=== PATIENT | male | born 1975 | race Caucasian/White ===

== ENCOUNTER 2022-03-29 18:12 | Emergency (ER) | payer MEDICARE ==
--- OUTSIDE RECORDS SUMMARY | 2022-03-29 18:16 | XMS REPORT | Continuity of Care Document ---
:1975 Author Organization [facility] t Address [address] [place] [address] Care Team Providers Name Role Phone Jeanne BLUM Primary Care Physician Unavailable Jeanne Myers Attending Clinician Unavailable Sameer Attending Clinician Unavailable PEBBLES Attending Clinician Unavailable Pebbles LINE REPAIRER Attending Clinician Nurse, [facility] Attending Clinician Unavailable Unknown Attending Clinician Unavailable Rubén REINA Attending Clinician UNKNOWN Attending Clinician Unavailable Doctor Unassigned, Name Attending Clinician Unavailable Dixie ADKINS Attending Clinician RUBÉN Attending Clinician Unavailable Roe ADKINS Attending Clinician Isabel CARLSON Attending Clinician ISABEL Attending Clinician Unavailable Bill Price MD Attending Clinician Bill PRICE Attending Clinician Unavailable Morena Matthews Attending Clinician Wendy Graham Attending Clinician Payers Payer Name Policy Type Policy Number Effective Date Expiration Date S joy JAIMES [facility] HMO [id number] 2020 00:00:00 FORMERLY [facility] [id number] (MEDICARE 00:00:00 REPLACEMENT HMO) [employer] [facility] [id number] 2021 MEDICARE ADVANTAGE 00:00:00 PLAN Problems Condition Condition Condition Status Onset Resolution Last Treating Co mments Source Name Details Category Date Date Treatment Clinician Date Drug Drug Disease Active Overview: Univer s dependence dependence 3-07 Formattin ity of , episodic , episodic 00:00: g of this [place] use use 00 note Medical might be Branch different from the original. 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 H/o Polysubst ance abuseICD1 0 Diagnosis Term Certified Dental Assistant Utility Allergies, Adverse Reactions, Alerts Allergy Allergy Status Severity Reaction(s) Onset Inactive Treating Comm ents Source Name Type Date Date Clinician PENICILL Drug Active Univers INS Class 2-25 ity of 00:00: [place] 00 Medical Branch Penicill Propensi Active Univer s ins ty to 2-25 ity of adverse 00:00: [place] reaction 00 Medical s Branch Penicill Propensi Active Univer s ins ty to 2-25 ity of adverse 00:00: [place] reaction 00 Medical s Branch Penicill Adverse Active Rash Common amine Reaction [facility] Social History Social Habit Start Date Stop Date Quantity Comments Source History SDOH University o f Alcohol Frequency [facility] edical Branch History [facility] University o f Alcohol Std [place] Medical Drinks Branch History SDVT University o f Alcohol Binge [place] Medic al Branch Exposure to 2022-01-15 2022-01-25 Not sure [place] of SARS-CoV-2 00:00:00 12:49:00 [facility] (event) Branch Alcohol intake 2022-01-25 2022-01-25 Ex-drinker University of 00:00:00 00:00:00 (finding) [facility] Alcohol Comment 2022-01-25 2022-01-25 c/o sober x 7 Univer sity of 00:00:00 00:00:00 years [facility] Tobacco use and 2016-04-06 2016-04-06 Never used Universit y of exposure 00:00:00 00:00:00 [facility] Sex [birth year] Universit y of 00:00:00 00:00:00 [facility] Smoking Status Start Date Stop Date Source Never smoker [facility] Medications Ordered Filled Start Stop Current Ordering Indication Dosage Frequency Signature Comments Components Source Medication Medication Date Date Medication? Clinician (SIG) Name Name lidocaine 2021- Yes 5mL 5 mL, Univer s 1% 01-2524 Infiltrati ity of (XYLOCAINE) 21:15: 09:14 on, ONCE, [place] 10 mg/mL (1 00 :00 1 dose, On Me dical %) Mon Branch injection 5 01/25/22 at mL 1615, HECTOR mupirocin 2 2020-09 Yes [id number] Apply to Univers % ointment 0-04 [id number] area(s) 3 it y of 00:00: (three) [place] 00 times Medical daily. Branch mupirocin 2 2020-09 Yes [id number] Apply to Univers % ointment 0-04 [id number] area(s) 3 it y of 00:00: (three) [place] 00 times Medical daily. Branch mupirocin 2 2020-09 Yes [id number] Apply to Univers % ointment 0-04 [id number] area(s) 3 it y of 00:00: (three) [place] 00 times Medical daily. Branch mupirocin 2 2020-09 Yes [id number] Apply to Univers % ointment 0-04 [id number] area(s) 3 it y of 00:00: (three) [place] 00 times Medical daily. Branch doxycycline 2020-09- No [id number] 100mg Take 1 Univers hyclate 100 0-04 10-10 [id number] tablet by ity of mg tablet 00:00: 04:59 mouth 2 [place] 00 :[place] (two) Medical times Branch daily for 5 days. mupirocin 2 Yes [id number] Apply to Univers % cream 9-19 [id number] area(s) 3 ity o f 00:00: (three) [place] 00 times Medical daily. Branch mupirocin 2 2020- No [id number] Apply to Univers % cream 9-19 10-04 [id number] area(s) 3 ity of 00:00: 00:00 (three) [place] 00 :00 times Medical daily. Branch sulfamethox 2020- No [id number] 1{tbl} Take 1 Univers azole-trime 05-24 [id number] tablet by ity of thoprim 00:00: 04:59 mouth 2 [place] (BACTRIM 00 :00 (two) Medical DS) 800-160 times Branch mg per daily for tablet 10 days. tetracaine 2019-09- No 1[drp] 1 Drop, U nivers (PONTOCAINE 06-30 Both Eyes, i ty of ) 0.5 % 22:30: 22:30 ONCE, 1 [place] ophthalmic 00 :00 dose, Mon Medi michael drops 1 06/30/20 Branch Drop at 1730, Routine tetanus-dip 2019-09 No .5mL 0.5 mL, Un jorge htheria 006-30 Intramuscu ity o f toxoids 22:30: 21:30 lar, ONCE, [place] as (TENIVAC) 00 :00 1 dose, Medical 5-2 Lf Mon Branch unit/0.5 mL 06/30/20 injection at 1730, 0.5 mL Routine ibuprofen 2019-09 Yes [id number] 600mg Take 1 Univers 600 mg 0-26 tablet by ity of tablet 00:00: mouth 00 every 6 Medical (six) Branch hours as needed for Pain (scale 4-6). ibuprofen 2019-09 Yes [id number] 600mg Take 1 Univers 600 mg 0-26 tablet by ity of tablet 00:00: mouth [place] 00 every 6 Medical (six) Branch hours as needed for Pain (scale 4-6). ibuprofen 2019-09- No [id number] 600mg Take 1 Univers 600 mg 0-26 05-24 tablet by ity of tablet 00:00: 00:00 mouth [place] 00 :00 every 6 Medical (six) Branch hours as needed for Pain (scale 4-6). erythromyci 2019-09- No [id number] .5[in_u Place 0.5 Univers n 5 mg/gram 0- 11-03 s] Inches in it y of (0.5 %) 00:00: 05:59 left eye 4 [place] ophthalmic 00 :00 (four) Medical ointment times Branch daily for 7 days. Continue until you follow up with eye doctor. acetaminoph 2019-09 2020- No [id number] 1{tbl} Take 1 U nivers en-codeine 0-26 11-03 tablet by ity of 300-30 mg 00:00: 05:59 mouth [place] tablet 00 :00 every 6 Medical (six) Branch hours as needed for Pain (scale 7-10) for up to 7 days. Indication s: acute pain Venlafaxine Venlafaxine 2019-0 Yes Mer 1 capsule Common HCl ER HCl ER 8-13 [place] for Spirit 00:00: anxiety - [facility] 00 [facility] BusPIRone BusPIRone 2019-0 Yes Mer 1 tablet Common HCl HCl 8-13 [place] as needed Spiri t 00:00: for - [facility]I 00 [facility] Gabapentin Gabapentin 2019-0 Yes Mer 1 capsule Common 8-13 [place] as needed Spiri t 00:00: for pain - [facility]I 00 [facility] Viagra Viagra 2019-0 2020- No Mer as Common 8- 09-12 [place] directed Spiri t 00:00: 00:00 - [facility]I 00 :00 [facility] methylPREDN 2020-0 Yes [id number] Take by Univers ISolone 7-07 mouth ity of (MEDROL, 00:00: SEE-INSTRU [place] TYSHAWN,) 4 mg 00 CTIONS. Medica l tablets follow Branch package directions benzonatate 2019-0 Yes [id number] 100mg Take 1 Univers 100 mg 7-07 capsule by ity of capsule 00:00: mouth 3 00 (three) Medical times Branch daily as needed for Cough. ondansetron 2020-0 Yes [id number] 4mg Take 1 Univers (ZOFRAN 7-07 tablet by ity of ODT) 4 mg 00:00: mouth [place] disintegrat 00 every 8 Medic al ing tablet (eight) Branch hours as needed for Nausea and Vomiting (N/V). cyclobenzap 2020-0 Yes [id number] 10mg Take 1 Univers rine 10 mg 7-07 tablet by ity of tablet 00:00: mouth 3 [place] 00 (three) Medical times Branch daily. methylPREDN 2020-0 Yes [id number] Take by Univers ISolone 7-07 mouth ity of (MEDROL, 00:00: SEE-INSTRU [place] TYSHAWN,) 4 mg 00 CTIONS. Medica l tablets follow Branch package directions benzonatate 2020-0 Yes [id number] 100mg Take 1 Univers 100 mg 7-07 capsule by ity of capsule 00:00: mouth 3 [place] 00 (three) Medical times Branch daily as needed for Cough. ondansetron 2020-0 Yes [id number] 4mg Take 1 Univers (ZOFRAN 7-07 tablet by ity of ODT) 4 mg 00:00: mouth [place] disintegrat 00 every 8 Medic al ing tablet (eight) Branch hours as needed for Nausea and Vomiting (N/V). cyclobenzap 2020-0 Yes [id number] 10mg Take 1 Univers rine 10 mg 7-07 tablet by ity of tablet 00:00: mouth 3 (three) Medical times Branch daily. methylPREDN 2020-0 Yes [id number] Take by Univers ISolone 7-07 mouth ity of (MEDROL, 00:00: SEE-INSTRU [place] TYSHAWN,) 4 mg 00 CTIONS. Medica l tablets follow Branch package directions benzonatate 2020-0 Yes [id number] 100mg Take 1 Univers 100 mg 7-07 capsule by ity of capsule 00:00: mouth 3 00 (three) Medical times Branch daily as needed for Cough. ondansetron 2020-0 Yes [id number] 4mg Take 1 Univers (ZOFRAN 7-07 tablet by ity of ODT) 4 mg 00:00: mouth [place] disintegrat 00 every 8 Medic al ing tablet (eight) Branch hours as needed for Nausea and Vomiting (N/V). cyclobenzap 2020-0 Yes [id number] 10mg Take 1 Univers rine 10 mg 7-07 tablet by ity of tablet 00:00: mouth 3 (three) Medical times Branch daily. methylPREDN 2020-0 2021- No [id number] Take by Univers ISolone 7-03 13-19 mouth ity of (MEDROL, 00:00: 00:00 [place]-INSTRU [place] TYSHAWN,) 4 mg 00 :00 CTIONS. Medica l tablets follow Branch package directions benzonatate 2020-0 2021- No [id number] 100mg Take 1 Univers 100 mg 7-07 -19 capsule by ity of capsule 00:00: 00:00 mouth 3 [place] 00 :00 (three) Medical times Branch daily as needed for Cough. ondansetron 2020- No [id number] 4mg Take 1 Univers (ZOFRAN 03-11 tablet by ity of ODT) 4 mg 00:00: 00:00 mouth [place] disintegrat 00 :00 every 8 Medic al ing tablet (eight) Branch hours as needed for Nausea and Vomiting (N/V). cyclobenzap 2020- No [id number] 10mg Take 1 Univers rine 10 mg 03-11 tablet by ity of tablet 00:00: 00:00 mouth 3 [place] 00 :00 (three) Medical times Branch daily. Selenium 2015-09 Yes Apply to Univ ers Sulfide 1-08 area(s) ity of (SELSEB) 00:00: daily. [place] 2.25 % 00 Medical shampoo Branch minocycline 2015-09 Yes 100mg Take 1 Uni vers (DYNACIN) 08 tablet by ity o f 100 mg 00:00: mouth 2 [place] tablet 00 (two) Medical times Branch daily. hydrocortis 2015-09 Yes Apply to U nivers one 1 % 1-08 affected ity of cream 00:00: area(s) 2 [place] 00 (two) Medical times Branch daily. Mix with equal parts clotrimazo le cream. Apply to face. clotrimazol 2015-09 Yes Apply to U nivers e 1-08 area(s) at ity of (LOTRIMIN) 00:00: bedtime. [place] 1 % topical 00 Medical cream Branch benzoyl 2015-09 Yes 1{bottl Apply 1 Univ ers peroxide 1-08 e} Bottle to ity of (RIAX) 5.5 00:00: area(s) 2 [place] % Foam 00 (two) Medical times Branch daily. triamcinolo 2015-09 Yes Apply to U nivers ne 1-08 area(s) 2 ity of acetonide 00:00: (two) [place] (TRIDERM) 00 times Medical 0.1 % cream daily. Branch clotrimazol 2015-09 Yes Apply to U nivers e 1-08 area(s) at ity of (LOTRIMIN) 00:00: bedtime. [place] 1 % topical 00 Medical cream Branch benzoyl 2015-09 Yes 1{bottl Apply 1 Univ ers peroxide 1-08 e} Bottle to ity of (RIAX) 5.5 00:00: area(s) 2 [place] % Foam 00 (two) Medical times Branch daily. triamcinolo 2015-09 Yes Apply to U nivers ne 1-08 area(s) 2 ity of acetonide 00:00: (two) [place] (TRIDER) 00 times Medical 0.1 % cream daily. Branch clotrimazol 2015-09 Yes Apply to U nivers e 1-08 area(s) at ity of (LOTRIMIN) 00:00: bedtime. [place] 1 % topical 00 Medical cream Branch benzoyl 2015-09 Yes 1{bottl Apply 1 Univ ers peroxide 1-08 e} Bottle to ity of (RIAX) 5.5 00:00: area(s) 2 [place] % Foam 00 (two) Medical times Branch daily. triamcinolo 2015-09 Yes Apply to U nivers ne 1-08 area(s) 2 ity of acetonide 00:00: (two) [place] (TRIDER) 00 times Medical 0.1 % cream daily. Branch clotrimazol 2015-09 Yes Apply to U nivers e 1-08 area(s) at ity of (LOTRIMIN) 00:00: bedtime. [place] 1 % topical 00 Medical cream Branch benzoyl 2015-09 Yes 1{bottl Apply 1 Univ ers peroxide 1-08 e} Bottle to ity of (RIAX) 5.5 00:00: area(s) 2 [place] % Foam 00 (two) Medical times Branch daily. triamcinolo 2015-09 Yes Apply to U nivers ne 1-08 area(s) 2 ity of acetonide 00:00: (two) [place] (TRIDER) 00 times Medical 0.1 % cream daily. Branch clotrimazol 2015-09 Yes Apply to U nivers e 1-08 area(s) at ity of (LOTRIMIN) 00:00: bedtime. [place] 1 % topical 00 Medical cream Branch benzoyl 2015-09 Yes 1{bottl Apply 1 Univ ers peroxide 1-08 e} Bottle to ity of (RIAX) 5.5 00:00: area(s) 2 [place] % Foam 00 (two) Medical times Branch daily. clotrimazol 2015-09 Yes Apply to U nivers e 1-08 area(s) at ity of (LOTRIMIN) 00:00: bedtime. [place] 1 % topical 00 Medical cream Branch benzoyl 2015-09 Yes 1{bottl Apply 1 Univ ers peroxide 1-08 e} Bottle to ity of (RIAX) 5.5 00:00: area(s) 2 [place] % Foam 00 (two) Medical times Branch daily. triamcinolo 2015-09 Yes Apply to U nivers ne 1-08 area(s) 2 ity of acetonide 00:00: (two) [place] (TRIDERM) 00 times Medical 0.1 % cream daily. Branch triamcinolo 2015-09 Yes Apply to U nivers ne 1-08 area(s) 2 ity of acetonide 00:00: (two) [place] (TRIDERM) 00 times Medical 0.1 % cream daily. Branch Selenium 2015-09 Yes Apply to Univ ers Sulfide 1-08 area(s) ity of (SELSEB) 00:00: daily. [place] 2.25 % 00 Medical shampoo Branch minocycline 2015-09 Yes 100mg Take 1 Uni vers (DYNACIN) 1-08 tablet by ity o f 100 mg 00:00: mouth 2 [place] tablet 00 (two) Medical times Branch daily. hydrocortis 2015-09 Yes Apply to U nivers one 1 % 1-08 affected ity of cream 00:00: area(s) 2 [place] 00 (two) Medical times Branch daily. Mix with equal parts clotrimazo le cream. Apply to face. clotrimazol 2015-09 Yes Apply to U nivers e 1-08 area(s) at ity of (LOTRIMIN) 00:00: bedtime. [place] 1 % topical 00 Medical cream Branch benzoyl 2015-09 Yes 1{bottl Apply 1 Univ ers peroxide 1-08 e} Bottle to ity of (RIAX) 5.5 00:00: area(s) 2 [place] % Foam 00 (two) Medical times Branch daily. triamcinolo 2015-09 Yes Apply to U nivers ne 1-08 area(s) 2 ity of acetonide 00:00: (two) [place] (TRIDERM) 00 times Medical 0.1 % cream daily. Branch Selenium 2015-09 Yes Apply to Univ ers Sulfide -08 area(s) ity of (SELSEB) 00:00: daily. [place] 2.25 % 00 Medical shampoo Branch minocycline 2015-09 Yes 100mg Take 1 Uni vers (DYNACIN) -08 tablet by ity o f 100 mg 00:00: mouth 2 [place] tablet 00 (two) Medical times Branch daily. hydrocortis 2015-09 Yes Apply to U nivers one 1 % 08 affected ity of cream 00:00: area(s) 2 [place] 00 (two) Medical times Branch daily. Mix with equal parts clotrimazo le cream. Apply to face. clotrimazol 2015-09 Yes Apply to U nivers e -08 area(s) at ity of (LOTRIMIN) 00:00: bedtime. [place] 1 % topical 00 Medical cream Branch benzoyl 2015-09 Yes 1{bottl Apply 1 Univ ers peroxide 1-08 e} Bottle to ity of (RIAX) 5.5 00:00: area(s) 2 [place] % Foam 00 (two) Medical times Branch daily. triamcinolo 2015-09 Yes Apply to U nivers ne 1-08 area(s) 2 ity of acetonide 00:00: (two) [place] (TRIDERM) 00 times Medical 0.1 % cream daily. Branch Selenium 2015-09- No Apply to Uni vers Sulfide 09-12 area(s) ity of (SELSEB) 00:00: 00:00 daily. [place] 2.25 % 00 :00 Medical shampoo Branch minocycline 2015-09- No 100mg Take 1 Un jorge (DYNACIN) 09-12 tablet by ity of 100 mg 00:00: 00:00 mouth 2 [place] tablet 00 :00 (two) Medical times Branch daily. hydrocortis 2015-09- No Apply to Univers one 1 % 09-12 affected ity of cream 00:00: 00:00 area(s) 2 [place] 00 :00 (two) Medical times Branch daily. Mix with equal parts clotrimazo le cream. Apply to face. DULOXETINE Yes 1 Cap Oral U nivers 20 MG ORAL 6-19 BID ity of CPDR 00:00: [place] 00 Medical Branch DULOXETINE 2008-0 Yes 1 Cap Oral U nivers 20 MG ORAL 6-19 BID ity of CPDR 00:00: [place] 00 Medical Branch DULOXETINE 2007- Yes 1 Cap Oral U nivers 20 MG ORAL 6-19 BID ity of CPDR 00:00: [place] 00 Medical Branch DULOXETINE 2007-0 2021- No 1 Cap Oral Univers 20 MG ORAL 6-19 09-19 BID ity of CPDR 00:00: 00:00 [place] 00 :00 Medical Branch QUETIAPINE 2006-0 Yes 2 Tab Oral U nivers 300 MG ORAL 3-08 QHS ity of TAB 00:00: [place] 00 Medical Branch QUETIAPINE 2006-0 Yes 2 Tab Oral U nivers 300 MG ORAL 3-08 QHS ity of TAB 00:00: [place] 00 Medical Branch QUETIAPINE 2006-0 Yes 2 Tab Oral U nivers 300 MG ORAL 3-08 QHS ity of TAB 00:00: [place] 00 Medical Branch QUETIAPINE 2006-0 1- No 2 Tab Oral Univers 300 MG ORAL 3-08 -19 QHS ity of TAB 00:00: 00:00 [place] 00 :00 Medical Branch Trazodone Trazodone Yes Mer 2 tablets Common HCl HCl [place] at bedtime Spir it as needed - [facility]I for sleep [facility] Doxycycline Doxycycline Yes Mer 1 tablet Common Hyclate Hyclate [place] Spir it - [facility] Immunizations Ordered Filled Immunization Date Status Comments Sour e Immunization Name Name Td 2020-06-30 Completed University of 00:00:00 [facility] Td 2020-06-30 Completed University of 00:00:00 [facility] Td 2020-06-30 Completed University of 00:00:00 [facility] Td 2020-06-30 Completed University of 00:00:00 [facility] Td 2020-06-30 Completed University of 00:00:00 [facility] Td 2020-06-30 Completed University of 00:00:00 [facility] Td 2020-06-30 Completed University of 00:00:00 [facility] Vital Signs Vital Name Observation Time Observation Value Comments Source Systolic blood 2022-01-25 20:50:00 168 mm[Hg] Univer sity of pressure [facility] Diastolic blood 2022-01-25 20:50:00 90 mm[Hg] Unive rsity of pressure [place] [facility] Heart rate 2022-01-25 20:50:00 81 /min Universi ty of [place] [facility] Respiratory rate 2022-01-25 20:50:00 18 /min Univ ersity of [place] [facility] Oxygen saturation in 2022-01-25 20:50:00 96 /min University of Arterial blood by [facility] Pulse oximetry Branch Body temperature 2022-01-25 18:00:00 36.44 Natalia Univ ersity of [place] [facility] Body weight 2022-01-25 18:00:00 133.811 kg Universi ty of [place] [facility] BMI 2022-01-25 18:00:00 35.91 kg/m2 [facility] ty [facility] [place] [facility] Systolic blood 2022-01-25 17:20:00 145 mm[Hg] Univer sity of pressure [place] [facility] Diastolic blood 2022-01-25 17:20:00 84 mm[Hg] Unive rsity of pressure [place] [facility] Heart rate 2022-01-25 17:15:00 90 /min Universi ty of [place] [facility] Body temperature 2022-01-25 17:15:00 36.61 Natalia Univ ersity of [place] [facility] Respiratory rate 2022-01-25 17:15:00 20 /min Univ ersity of [place] [facility] Body height 2022-01-25 17:15:00 193 cm [facility]i ty [facility] [place] [facility] Body weight 2022-01-25 17:15:00 133.811 kg Universi ty [facility] [place] [facility] BMI 2022-01-25 17:15:00 35.91 kg/m2 Universi ty [facility] [place] [facility] Oxygen saturation in 2022-01-25 17:15:00 96 /min University of Arterial blood by [facility] Pulse oximetry Branch Systolic blood 2021-06-09 00:29:00 157 mm[Hg] Univer sity of pressure [place] [facility] Diastolic blood 2021-06-09 00:29:00 84 mm[Hg] Unive rsity of pressure [place] [facility] Heart rate 2021-06-09 00:26:00 92 /min Universi ty [facility] [place] [facility] Body temperature 2021-06-09 00:26:00 36.61 Natalia Univ ersity of [place] [facility] Respiratory rate 2021-06-09 00:26:00 18 /min Univ ersity of [place] [facility] Body height 2021-06-09 00:26:00 193 cm [facility]i ty [facility] [place] [facility] Body weight 2021-06-09 00:26:00 132.949 kg [facility]i [facility] [place] [facility] BMI 2021-06-09 00:26:00 35.68 kg/m2 [facility] [place] [facility] Systolic blood 2021-05-24 19:09:00 154 mm[Hg] Univer sity of pressure [place] [facility] Diastolic blood 2021-05-24 19:09:00 82 mm[Hg] Unive rsity of pressure [place] [facility] Heart rate 2021-05-24 19:09:00 88 /min Universi ty [facility] [place] [facility] Body temperature 2021-05-24 19:09:00 36.39 Natalia Univ ersity of [place] [facility] Branch Respiratory rate 2021-05-24 19:09:00 18 /min Univ ersity of [place] [facility] Body height 2021-05-24 19:09:00 193 cm [facility]i ty [facility] [place] [facility] [place] Body weight 2021-05-24 19:09:00 129.87 kg [facility] [place] [facility] BMI 2021-05-24 19:09:00 34.85 kg/m2 [facility] [place] [facility] Systolic blood 2020-06-30 21:54:00 137 mm[Hg] Univer sity of pressure [place] [facility] Diastolic blood 2020-06-30 21:54:00 76 mm[Hg] Unive rsity of pressure [place] [facility] Heart rate 2020-06-30 21:54:00 77 /min Universi ty of [facility] Respiratory rate 2020-06-30 21:54:00 14 /min Univ ersity of [facility] Oxygen saturation in 2020-06-30 21:54:00 97 /min [facility] Arterial blood by [facility] Pulse oximetry Branch Body weight 2020-06-30 20:57:00 124.739 kg Universi ty [facility] [place] [facility] BMI 2020-06-30 20:57:00 34.37 kg/m2 [facility] [place] [facility] Body temperature 2020-06-30 20:57:00 36.61 Natalia Univ ersity of [facility] Branch Body height 2020-06-30 20:57:00 190.5 cm Universi ty of [facility] Branch Systolic blood 2020-06-30 21:54:00 137 mm[Hg] Univer sity of pressure [place] [facility] Diastolic blood 2020-06-30 21:54:00 76 mm[Hg] Unive rsity of pressure [place] [facility] Heart rate 2020-06-30 21:54:00 77 /min Universi ty [facility] [place] [facility] Respiratory rate 2020-06-30 21:54:00 14 /min Univ ersity of [place] [facility] Oxygen saturation in 2020-06-30 21:54:00 97 /min University of Arterial blood by [place] Prepmatic michael Pulse oximetry Branch Body weight 2020-06-30 20:57:00 124.739 kg [facility]i ty [facility] [place] [facility] BMI 2020-06-30 20:57:00 34.37 kg/m2 [facility] [place] [facility] Body temperature 2020-06-30 20:57:00 36.61 Natalia Univ ersity of [place] [facility] Body height 2020-06-30 20:57:00 190.5 cm [facility]i ty [facility] [place] [facility] Systolic blood 2020-03-11 16:15:00 139 mm[Hg] Univer sity of pressure [place] [facility] Diastolic blood 2020-03-11 16:15:00 94 mm[Hg] Unive rsity of pressure [place] [facility] Heart rate 2020-03-11 16:15:00 76 /min [facility]i ty [facility] [place] [facility] Body temperature 2020-03-11 16:15:00 37.06 Natalia Univ ersity of [place] [facility] Respiratory rate 2020-03-11 16:15:00 20 /min Univ ersity of [place] [facility] Body weight 2020-03-11 16:15:00 121.564 kg [facility] [place] [facility] BMI 2020-03-11 16:15:00 32.62 kg/m2 [facility] [place] [facility] Oxygen saturation in 2020-03-11 16:15:00 100 /min University of Arterial blood by [place] Prepmatic michael Pulse oximetry Branch Systolic blood 2020-03-11 16:15:00 139 mm[Hg] Univer sity of pressure [place] [facility] Diastolic blood 2020-03-11 16:15:00 94 mm[Hg] Unive rsity of pressure [place] [facility] Heart rate 2020-03-11 16:15:00 76 /min [facility]i ty [facility] [place] [facility] Body temperature 2020-03-11 16:15:00 37.06 Natalia Univ ersity [facility] [place] [facility] Respiratory rate 2020-03-11 16:15:00 20 /min [facility] Body weight 2020-03-11 16:15:00 121.564 kg [facility] BMI 2020-03-11 16:15:00 32.62 kg/m2 [facility] Oxygen saturation in 2020-03-11 16:15:00 100 /min [facility] blood by [facility] Pulse oximetry Branch Procedures Procedure Date / Time Performing Clinician Source Performed XR TIBIA FIBULA 2 VW 2022-01-25 19:28:56 Alena Rogel [facility] CONSENT/REFUSAL FOR 2022-01-25 17:49:47 [facility] ASSIGNMENT OF BENEFITS 2022-01-25 17:10:19 Doctor Unassigned, No [facility] XR ANKLE 3+ VW RIGHT 2020-07-07 22:24:32 Archie Price [facility] CONSENT/REFUSAL FOR 2020-06-30 20:48:08 [facility], [facility] URINALYSIS 2020-03-11 16:54:00 Ridge Carlson Kenly o f [facility] COMP. METABOLIC PANEL 2020-03-11 16:50:00 Ridge Carlson [facility] ([id number]) [facility] CBC WITH DIFFERENTIAL 2020-03-11 16:50:00 Ridge Carlson [facility] COVID-19 (ID NOW RAPID 2020-03-11 16:50:00 Ridge Carlson [facility] TESTING) [facility] Branch NOTICE OF PRIVACY 2020-03-11 16:03:59 Doctor [facility] Medical [place] Encounters Start End Encounter Admission Attending Care Care Encounter Source Date/Time Date/Time Type Type Clinicians Facility Department ID 2022-03-29 [facility] [id number] Common 11:11:01 [facility] 2021-10-27 [facility] [id number] Common 11:44:01 [facility] 2021-09-30 Outpatient Myers, Na STLMLC STLMLC [id number] 2 Common 14:34:58 [facility] 2021-09-30 Outpatient Myesr, Na STLMLC STLMLC [id number] Common 14:33:26 [facility] 2021-09-30 Outpatient Myers, Na STLMLC STLMLC [id number] 2 Common 14:26:24 [id number] [facility] 2021-09-30 Outpatient Myers, Na STLMLC STLMLC [id number] Common 13:50:35 06049 [facility] 2021-09-30 Outpatient Myers, Na STLMLC STLMLC [id number] 2 Common 12:56:36 [id number] [facility] 2021-09-30 Outpatient Myers, Na STLMLC STLMLC [id number] 2 Common 12:52:36 82332 [facility] 2021-09-30 Outpatient Myers, Na STLMLC STLMLC [id number] 2 Common 12:45:08 [id number] [facility] 2021-09-30 Outpatient Myers, Na STLMLC STLMLC [id number] 2 Common 12:26:20 [id number] [facility] 2021-09-30 Outpatient Myers, Na STLMLC STLMLC [id number] 2 Common 12:25:12 [id number] [facility] 2021-09-30 Outpatient Myers, Na STLMLC STLMLC [id number] 2 Common 12:15:25 [id number] [facility] 2021-09-30 Outpatient STLMLC STLMLC [id number] Common 12:14:45 [id number] [facility] 2021-09-30 Outpatient STLMLC STLMLC [id number] Common 12:06:55 10124 [facility] 2021-09-30 Outpatient Millender, STLMLC STLMLC [id number] Common 11:49:30 Mer 47738 [facility] 2021-09-30 [id number] Common 11:37:38 Mer 34822 [facility] 2021-07-04 Emergency [facility] [id number] Univers 01:08:48 ity [facility] 2021-07-03 Emergency [facility] [id number] Univers 05:12:53 ity [facility] 2022-03-19 2022-03-19 Outpatient DMG DMG [id number] Devoted 06:07:00 06:07:00 0715 [facility] 2022-01-25 2022-01-25 Emergency X ROGEL, [facility] ERT [id number] Univers 12:55:00 15:51:00 ALENA [facility] 2022-01-25 2022-01-25 Emergency Rogel, [facility] [id number] Univers 12:55:00 15:51:00 Alena ARCE [id number] i ty of [place] 4.2.7.2.686 [facility] [id number] [place] [id number] [place] 2022-01-25 2022-01-25 Nurse Nurse, [facility] [id number] Univers 12:45:00 13:05:00 Visit Unknown, Attending HEALTH [id number] ity of [place] 4.2.7.2.686 [facility]?BLEA [phone] Fl orestes [address] MEDICAL OFFICE BUILDING 2022-01-25 2022-01-25 Outpatient R [facility] [id number] Univers 12:45:00 12:45:00 [id number] ity [facility] 2022-01-25 2022-01-25 Outpatient R UNKNOWN, [facility] [id number] Univers 12:20:00 12:20:00 ATTENDING [facility] 2022-01-25 2022-01-25 Orders Doctor CESPEDES [id number] Univers 00:00:00 00:00:00 Only Unassigned, JAYY [id number] ity of [place] [facility] 4.2.7.2.686 Augusto as [phone] [place] [address] Branch 2021-10-27 2021-10-27 ambulatory STLMLC STLMLC [id number] Common 00:00:00 00:00:00 [facility] 2021-09-16 2021-09-16 ambulatory STLMLC STLMLC [id number] Common 00:00:00 00:00:00 [facility] 2021-09-16 2021-09-16 ambulatory STLMLC STLMLC [id number] Common 00:00:00 00:00:00 [facility] 2021-09-09 2021-09-09 ambulatory STLMLC STLMLC [id number] Common 00:00:00 00:00:00 [facility] 2021-08-25 2021-08-25 ambulatory STLMLC STLMLC [id number] Common 00:00:00 00:00:00 [facility] 2021-08-24 2021-08-24 ambulatory STLMLC STLMLC [id number] Common 00:00:00 00:00:00 [facility] 2021-08-20 2021-08-20 ambulatory STLMLC STLMLC [id number] Common 00:00:00 00:00:00 [facility] 2021-08-18 2021-08-18 ambulatory STLMLC STLMLC [id number] Common 00:00:00 00:00:00 [facility] 2021-07-17 2021-07-17 Outpatient DMG DMG [id number] Devoted 12:00:00 12:00:00 1112 [facility] l [facility] 2021-06-29 2021-06-29 Outpatient STLMLC STLMLC [id number] Common 00:00:00 00:00:00 [facility] 2021-06-08 2021-06-08 Urgent Guera Colin [facility] 1.2.840. [id number] Univers 18:57:02 19:17:02 [facility] [id number] ity [facility] 4.2.7.2.686 Augusto as Enrike?Blea [phone] Fl orestes [address] Medical Office [facility] 2021-06-08 2021-06-08 Outpatient R [facility] [id number] Univers 19:00:00 19:00:00 [id number] [facility] 2021-06-08 2021-06-08 [facility] [id number] Univers 19:00:00 19:00:00 DEANNA [facility] 2021-05-24 2021-05-24 Urgent Celeste Au [facility] [id number] Univers 14:05:36 14:40:22 [facility] [id number] [facility] [id number] Augusto as Enrike?Blea [phone] Fl [address]is[address] Medical Office [facility] 2021-05-24 2021-05-24 Outpatient R [facility] [id number] Univers 14:00:00 14:00:00 [id number] [facility] 2021-05-24 2021-05-24 [facility] [id number] Univers 14:00:00 14:00:00 SANTI [facility] 2021-05-15 2021-05-15 Outpatient STLMLC STLMLC [id number] Common 00:00:00 00:00:00 [facility] 2021-04-01 2021-04-01 Outpatient STLMLC STLMLC [id number] Common 00:00:00 00:00:00 [facility] 2021-04-01 2021-04-01 Outpatient STLMLC STLMLC [id number] Common 00:00:00 00:00:00 [facility] 2021-03-27 2021-03-27 Outpatient STLMLC STLMLC [id number] Common 00:00:00 00:00:00 [facility] 2021-01-01 2021-01-01 Outpatient STLMLC STLMLC [id number] Common 00:00:00 00:00:00 [facility] 2020-12-31 2020-12-31 Outpatient STLMLC STLMLC [id number] Common 00:00:00 00:00:00 [facility] 2020-12-18 2020-12-18 Outpatient STLMLC STLMLC [id number] Common 00:00:00 00:00:00 [facility] 2020-12-18 2020-12-18 Outpatient STLMLC STLMLC [id number] Common 00:00:00 00:00:00 [facility] 2020-11-27 2020-11-27 Outpatient STLMLC STLMLC [id number] Common 00:00:00 00:00:00 [facility] 2020-10-10 2020-10-10 Outpatient STLMLC STLMLC [id number] Common 00:00:00 00:00:00 [facility] 2020-10-02 2020-10-02 Outpatient STLMLC STLMLC [id number] Common 00:00:00 00:00:00 [facility] 2020-08-26 2020-08-26 Outpatient STLMLC STLMLC [id number] Common 00:00:00 00:00:00 [facility] 2020-07-07 2020-07-07 [facility] [id number] [facility] 16:09:43 23:59:00 Encounter Archie Arce 350.1.13.10 itjuanito [facility] 4.2.7.[address] [place] [id number] 2020-07-07 2020-07-07 [facility] 1.2.840.114 [id number] 16:09:43 23:59:00 Encounter Archie Khan [place] [id number] [place] [address] [place] [address] [id number] [facility] 2020-07-07 2020-07-07 Outpatient [facility] [id number] Univers 16:15:00 16:15:00 ARCHIE [id number] [facility] 2020-07-07 2020-07-07 Outpatient R DEE [facility] [id number] Univers 00:00:00 00:00:00 ARCHIE ity of [facility] 2020-06-30 2020-06-30 Emergency [facility] [id number] [facility] 16:03:00 17:37:00 Uma R Watson 350.1.13.10 i ty of [place] 4.2.7.2.686 [facility] [id number] [address] 2020-06-30 2020-06-30 Emergency [facility] [id number] 16:03:00 17:37:00 Uma R Watson [id number] [place] [address] [place] [address] [id number] 2020-06-17 2020-06-17 Outpatient STLMLC STLMLC [id number] Common 00:00:00 00:00:00 [facility] 2020-04-17 2020-04-17 Outpatient [facility] [id number] Common 14:00:00 14:00:[address] [facility] [address] [facility] 2020-03-11 2020-03-11 Emergency Ridge Carlson [facility] 1.2.840.114 [id number] [facility] 11:18:14 14:21:00 Wendy Watson 350.1.13.10 i ty of [place] 4.2.7.2.686 [facility] [id number] [address] 2020-03-11 2020-03-11 Emergency Ridge Carlson [facility] 1.2.840.114 [id number] 11:18:14 14:21:00 Wendy Watson 350.1.13.10 [place] 4.2.7.2.686 [place] [id number] 084 Results Test Description Test Test Results Result Source Time Comments Comments XR ANKLE 3+ VW 2020-07-06. ?Chronic healed Un iversity of RIGHT 02 distal diaphyseal [facility] 22:43:03 fractures of right Branch tibia and fibula.No signs of loosening of the internal fixation hardware of tibia. 2. ?Nonspecific diffuse soft tissue swelling and numerous superficialmetallic surgical clips of right lower leg. 3. ?No evidence of acute injury. RL: 6200 ORDERING PHYSICIAN: ARCHIE PRICE CLINICAL HISTORY:ankle pain ? TECHNIQUE:Right ankle radiographs, 3 views. COMPARISON:None. FINDINGS:Chronic healed distal diaphyseal fractures of the right tibia and fibula.There is an implanted metallic intramedullary nail of mid to distal tibiawithout signs of loosening or fracture. Joint spaces and alignment arenormal at the right ankle. Mild degenerative changes of subtalar joints.Nonspecific soft tissue swelling throughout the right lower leg andmultiple metallic surgical clips. [facility], Radiant Results Inft User - 07/07/2020 4:44 PM CSTORDERING PHYSICIAN: ARCHIE PARRAINICAL HISTORY:ankle pain TECHNIQUE:Right ankle radiographs, 3 views.COMPARISON:None.F INDINGS:Chronic healed distal diaphyseal fractures of the right tibia and fibula.There is an implanted metallic intramedullary nail of mid to distal tibiawithout signs of loosening or fracture. Joint spaces and alignment arenormal at the right ankle. Mild degenerative changes of subtalar joints.Nonspecific soft tissue swelling throughout the right lower leg andmultiple metallic surgical clips.IMPRESSION1. Chronic healed distal diaphyseal fractures of right tibia and fibula.No signs of loosening of the internal fixation hardware of tibia.2. Nonspecific diffuse soft tissue swelling and numerous superficialmetallic surgical clips of right lower leg.3. No evidence of acute injury.RL: 6200 D-19 (ID NOW RAPID TESTING) 2020-03-11 18:14:00 Test Item Value Reference Range Interpretation Comme nts SARS-CoV-2 Rapid ID NOW (test code Positive Not Detected A = 47512-1) YUE (test code = YUE) ID NOW COVID-19 Assay is an isothermal nucleic acid amplification test intended for the qualitative detection of nucleic acid from SARS-CoV-2 viral RNA in nasopharyngeal (RUG SIZER) specimens. It is used under Emergency Use Authorization (EUA) by FDA. The limit of detection (LOD) of the assay is 125 Genome Equivalents/mL. A positive result is indicative of the presence of SARS-CoV-2 RNA. ?Clinical correlation with patient history and other diagnostic information is necessary to determine patient infection status. A negative (Not Detected) result does not preclude SARS-CoV-2 infection. In patients with clinical symptoms and other tests that are consistent with SARS-CoV-2 infection, negative results should be treated as presumptive negative and a new specimen should be tested with alternative PCR molecular test. Invalid: Please collect a new specimen for repeat patient testing if clinically indicated. Lab Interpretation (test code = Abnormal 10596-7) [facility]. METABOLIC PANEL (87875)2020-03-11 17:31:00 Test Item Value Reference Range Interpretation Comments NA (test code = 136 mmol/L 135-145 6728609163) K (test code = 4.6 mmol/L 3.5-5 4166227052) CL (test code = 100 mmol/L 98-108 0275932784) CO2 TOTAL (test code = 30 mmol/L 23-31 7892506629) AGAP (test code = 2-16 0454527820) BUN (test code = 11 mg/dL 7-23 0374975873) GLUCOSE (test code = 93 mg/dL 70-110 9325359920) CREATININE (test code = 1.12 mg/dL 0.6-1.25 2235549905) TOTAL BILI (test code = 0.4 mg/dL 0.1-1.8 7189534974) CALCIUM (test code = 9.2 mg/dL 8.6-10.6 7581724462) T PROTEIN (test code = 7.8 g/dL 6.3-8.2 2023724876) ALBUMIN (test code = 3.9 g/dL 3.5-5 5586580047) ALK PHOS (test code = 65 U/L 34-122 7858493649) ALTv (test code = 86 U/L 5-50 H 1742-6) AST(SGOT) (test code = 64 U/L 13-40 H 6897647558) eGFR Calculation mL/min/1.73m2 (Non-) (test code = 7963425446) eGFR Calculation mL/min/1.73m2 () (test code = 2126514813) YUE (test code = YUE) Association of Glomerular Filtration Rate (GFR) and Staging of Kidney Disease* + --+ --+ ------+| GFR (mL/min/1.73 m2) ?| With Kidney Damage ?| ?Without Kidney Damage+ --------+ --------+ +| ?>90 ?| ?Stage one ?| ? Normal ?+ ---+ ---+ -------+| ?60-89 ?| ?Stage two ?| ? Decreased GFR ? + --+ --+ ------+| ?30-59 ?| ?Stage three ?| ? Stage three ? + --+ --+ ------+| ?15-29 ?| ?Stage four ? | ? Stage four ?+ ---+ ---+ -------+| ?<15 (or dialysis) ? ?| ?Stage five ? | ? Stage five ?+ ---+ ---+ -------+ *Each stage assumes the associated GFR level has been in effect for at least three months. ?Stages 1 to 5, with or without kidney disease, indicate chronic kidney disease. Notes: Determination of stages one and two (with eGFR >59mL/min/1.73 m2) requires estimation of kidney damage for at least three months as defined by structural or functional abnormalities of the kidney, manifested by either:Pathological abnormalities or Markers of kidney damage (including abnormalities in the composition of the blood or urine or abnormalities in imaging tests). Lab Interpretation Abnormal (test code = 18726-1) [facility]00 Test Item Value Reference Range Interpretation Comments APPEARANCE (test code = Clear Clear 7118175557) COLOR (test code = Yellow Yellow 8630726522) PH (test code = 4.8-8.0 4231817790) SP GRAVITY (test code = 1.003-1.030 5534522458) GLU U QUAL (test code = Normal Normal 3242491702) BLOOD (test code = Negative Negative INTERFERE NCE FROM 4653903246) ASCORBIC ACID M AY CAUSE FALSE NEG ATIVE RESULT KETONES (test code = Negative Negative 3447204055) PROTEIN (test code = Negative Negative 2887-8) UROBILIN (test code = Normal Normal 9706037754) BILIRUBIN (test code = Negative Negative 5013087915) NITRITE (test code = Negative Negative 9503567632) LEUK MOHINI (test code = Negative Negative 5004977744) RBC/HPF (test code = See_Comment [Autom ated message] 1455582317) The system [employer] generated this result transmitted ref erence range: 0 - 3 HP F. The reference range was not used to int erpret this result as normal/abnormal . WBC/HPF (test code = <1 See_Comment [Autom ated message] 5721029522) The system [employer] generated this result transmitted ref erence range: 0 - 5 HP F. The reference range was not used to int erpret this result as normal/abnormal . BACTERIA (test code = Negative Negative 3864950880) Lab Interpretation (test Normal code = 75497-4) [facility] WITH [id number] 17:11:00 Test Item Value Reference Range Interpretation Comments WBC (test code = See_Comment [Automated 6690-2) message] The sy stem which generated this result transmitted reference range : 4.20 - 10.70 10*3/?L. The reference range was not used to interpret this result as normal/abnormal . RBC (test code = See_Comment H [Automated 789-8) message] The sy stem which generated this result transmitted reference range : 4.26 - 5.52 10*6/?L. The reference range was not used to interpret this result as normal/abnormal . HGB (test code = 18.3 g/dL 12.2-16.4 H 718-7) HCT (test code = 54.9 % 38.4-49.3 H 4544-3) MCV (test code = 86.3 fL 81.7-95.6 787-2) MCH (test code = 28.8 pg 26.1-32.7 785-6) MCHC (test code = 33.3 g/dL 31.2-35 786-4) RDW-SD (test code = 44.7 fL 38.5-51.6 52702-3) RDW-CV (test code = 14.4 % 12.1-15.4 788-0) PLT (test code = See_Comment [Automated 777-3) message] The sy stem which generated this result transmitted reference range : 150 - 328 10*3/ ?L. The reference r steven was not used to interpret this result as normal/abnormal . MPV (test code = 10.3 fL 9.8-13 71293-0) NRBC/100 WBC (test See_Comment [Automat ed code = 1701714732) message] The system which generated this result transmitted reference range : 0.0 - 10.0 /100 WBCs. The refer ence range was not u sed to interpret th is result as normal/abnormal . NRBC x10^3 (test code <0.01 See_Comment [Auto mated = 9612114476) message] The s ystem which generated this result transmitted reference range : 10*3/?L. The reference range was not used to interpret this result as normal/abnormal . GRAN MAT (NEUT) % 72.7 % (test code = 770-8) IMM GRAN % (test code 0.60 % = 3566008871) LYMPH % (test code = 16.3 % 736-9) MONO % (test code = 9.7 % 5905-5) EOS % (test code = 0.6 % 713-8) BASO % (test code = 0.1 % 706-2) GRAN MAT x10^3(ANC) 5.05 10*3/uL 1.99-6.95 (test code = 0468808649) IMM GRAN x10^3 (test 0.04 10*3/uL 0-0.06 code = 4594801065) LYMPH x10^3 (test code 1.13 10*3/uL 1.09-3.23 = 731-0) MONO x10^3 (test code 0.67 10*3/uL 0.36-1.02 = 742-7) EOS x10^3 (test code = 0.04 10*3/uL 0.06-0.53 L 711-2) BASO x10^3 (test code <0.03 0.01-0.09 = 704-7) Lab Interpretation Abnormal (test code = 05344-7) [facility]"
[2022-03-29] MEDS ORDERED: ACETAMINOPHEN 500 MG TAB ONE (19:49)
[2022-03-29] MEDS ORDERED: IBUPROFEN 400 MG TAB ONE (19:49)
[2022-03-29] MEDS ORDERED: CYCLOBENZAPRINE 10 MG TAB ONE (21:17)
[2022-03-29] MEDS ORDERED: KETOROLAC 30 MG/ML INJ ONE (21:17)
--- NOTE | 2022-03-29 21:24 | ER ---
Nurse's Notes [facility] Name: Jaxon Lopez Age: 46 yrs Sex: Male : 1975 Arrival Date: 03/29/2022 Time: 18:14 Bed 10 Private MD: Diagnosis: Headache;Dorsalgia, unspecified;SARS-associated coronavirus as the cause of diseases classified elsewhere Presentation: 03/29 18:50 Chief complaint: Patient states: BETH, dizziness, body aches x 2 days. Coronavirus jl7 screen: headache, muscle pain, Client presents with at least one sign or symptom that may indicate coronavirus-19. Standard/surgical mask placed on the client. Provider contacted for isolation considerations. Ebola Screen: No symptoms or risks identified at this time. Initial Sepsis Screen: Does the patient meet any 2 criteria? No. Patient's initial sepsis screen is negative. Does the patient have a suspected source of infection? No. Patient's initial sepsis screen is negative. Risk Assessment: Do you want to hurt yourself or someone else? Patient reports no desire to harm self or others. Onset of symptoms was March 27, 2022. 18:50 Method Of Arrival: Ambulatory [facility] 18:50 Acuity: DAVID 3 jl7 Triage Assessment: 19:25 Headache History: Denies prior headaches. General: Appears. General: Appears ll3 uncomfortable, Behavior is calm, cooperative. Pain: Complains of pain in forehead and top of head Pain currently is 7 out of 10 on a pain scale. Pain began 1 day ago. Also complains of no other associated symptoms. Neuro: Level of Consciousness is awake, alert, obeys commands, Oriented to person, place, time, situation. Respiratory: Respiratory effort is even, unlabored, Respiratory pattern is regular, symmetrical. Historical: - Allergies: 18:51 PENICILLINS; jl7 - Home Meds: 18:51 None [Active]; jl7 - PMHx: 18:51 None; jl7 - PSHx: 18:51 None; jl7 - Immunization history:: Client reports receiving the 2nd dose of the Covid vaccine. - Social history:: Smoking status: Patient denies any tobacco usage or history of. Screenin:02 Abuse screen: Denies threats or abuse. Nutritional screening: No deficits noted. ll3 Tuberculosis screening: No symptoms or risk factors identified. Fall Risk No fall in past 12 months (0 pts). No secondary diagnosis (0 pts). No IV (0 pts). Ambulatory Aid- None/Bed Rest/Nurse Assist (0 pts). Gait- Normal/Bed Rest/Wheelchair (0 pts) Mental Status- Oriented to own ability (0 pts). Total Ortiz Fall Scale indicates No Risk (0-24 pts). Assessment: 22:01 Reassessment: No changes from previously documented assessment. Patient and/or family ll3 updated on plan of care and expected duration. Pain level reassessed. Patient is alert, oriented x 3, equal unlabored respirations, skin warm/dry/pink. Vital Signs: 18:50 BP 173 / 94; Pulse 71; Resp 17; Temp 99.1; Pulse Ox 99% on R/A; Weight 129.27 kg; jl7 Height 6 ft. 3 in. (190.50 cm); Pain 6/10; 20:01 BP 147 / 86 Supine; ll3 20:01 BP 150 / 85 Sitting; ll3 20:01 BP 156 / 92 Standing; ll3 22:01 BP 143 / 93; Pulse 59; Resp 16; Pulse Ox 97% on R/A; ll3 18:50 Body Mass Index 35.62 (129.27 kg, 190.50 cm) jl7 ED Course: 18:14 Patient arrived in ED. mr 18:50 Minal García FNP-C is PHCP. kb 18:50 Raffi Botello MD is Attending Physician. kb 18:51 Triage completed. jl7 18:51 Arm band placed on right wrist. [facility] 18:52 PHCP role handed off by Minal García FNP-C cp 18:52 Raffi Neves PA is PHCP. cp 22:01 John Denise, MULUGETA is Primary Nurse. ll3 22:02 No provider procedures requiring assistance completed. Patient did not have IV access ll3 during this emergency room visit. 22:03 Patient has correct armband on for positive identification. Bed in low position. Call ll3 light in reach. Side rails up X 1. Adult w/ patient. Administered Medications: 19:45 Drug: Ibuprofen 800 mg Route: PO; ll3 22:04 Follow up: Response: No adverse reaction ll3 19:45 Drug: Tylenol 1000 mg Route: PO; ll3 22:04 Follow up: Response: No adverse reaction ll3 21:16 Drug: Ketorolac 60 mg Route: IM; Site: right gluteus; ll3 22:04 Follow up: Response: No adverse reaction ll3 21:16 Drug: Flexeril (cyclobenzaprine) 10 mg Route: PO; ll3 22:04 Follow up: Response: No adverse reaction ll3 Medication: 22:03 VIS not applicable for this client. ll3 Outcome: :23 Discharge ordered by . tarik 22:04 Discharged to home ambulatory, with family. ll3 22:04 Condition: stable 22:04 Discharge instructions given to patient, significant other, Instructed on discharge instructions, follow up and referral plans. medication usage, Demonstrated understanding of instructions, follow-up care, medications, Prescriptions given X 3. 22:04 Patient left the ED. ll3 Signatures: Minal García, [employer]-C [employer]-Jossy Francisco Corey, PA PA cp Leal, Jahala, RN RN jl7 John Denise RN RN ll3
--- NOTE | 2022-03-29 21:25 | EDPHYS ---
Physician Documentation [facility] Name: Jaxon Lopez Age: 46 yrs Sex: Male : 1975 Arrival Date: 03/29/2022 Time: 18:14 Bed 10 Private MD: EVELIA Physician Raffi Botello HPI: 03/29 19:00 This 46 yrs old Male presents to ER via Ambulatory with complaints of Headache, cp Dizziness, Body aches. 19:00 The patient complains of pain to the top of head and forehead. The patient describes cp the headache as aching. Onset: The symptoms/episode began/occurred 2 day(s) ago. Historical: - Allergies: 18:51 PENICILLINS; jl7 - Home Meds: 18:51 None [Active]; jl7 - PMHx: 18:51 None; jl7 - PSHx: 18:51 None; jl7 - Immunization history:: Client reports receiving the 2nd dose of the Covid vaccine. - Social history:: Smoking status: Patient denies any tobacco usage or history of. ROS: 19:05 Constitutional: Positive for body aches, Negative for fever, poor PO intake. cp 19:05 Eyes: Negative for injury, pain, redness, and discharge. cp 19:05 ENT: Negative for drainage from ear(s), ear pain, sore throat, difficulty swallowing, difficulty handling secretions. 19:05 Neck: Negative for pain with movement, pain at rest, stiffness. 19:05 Cardiovascular: Negative for chest pain, edema, palpitations. 19:05 Respiratory: Negative for cough, shortness of breath, wheezing. 19:05 Abdomen/GI: Negative for abdominal pain, nausea, vomiting, and diarrhea, bowel incontinence. 19:05 Back: Positive for pain at rest, pain with movement. 19:05 : Negative for urinary symptoms, bladder incontinence, testicular pain 19:05 Neuro: Positive for headache, Negative for altered mental status, dizziness, weakness. 19:05 All other systems are negative. Exam: 19:10 Constitutional: The patient appears in no acute distress, alert, awake, cp non-diaphoretic, non-toxic, well developed, well nourished, uncomfortable. 19:10 Head/Face: Normocephalic, atraumatic. cp 19:10 Eyes: Periorbital structures: appear normal, Pupils: equal, round, and reactive to light and accomodation, Extraocular movements: intact throughout, Conjunctiva: normal, no exudate, no injection, Sclera: no appreciated abnormality, Lids and lashes: appear normal, bilaterally. 19:10 ENT: External ear(s): are unremarkable, Nose: is normal, Mouth: Lips: moist, Oral mucosa: pink and intact, moist, Posterior pharynx: Airway: no evidence of obstruction, patent. 19:10 Neck: ROM/movement: is normal, is supple, no meningismus, no nuchal rigidity, Lymph nodes: no appreciated lymphadenopathy. 19:10 Chest/axilla: Inspection: normal. 19:10 Cardiovascular: Rate: normal, Rhythm: regular. 19:10 Respiratory: the patient does not display signs of respiratory distress, Respirations: normal, no use of accessory muscles, no retractions, labored breathing, is not present, Breath sounds: are clear throughout, no decreased breath sounds, no stridor, no wheezing. 19:10 Abdomen/GI: Inspection: abdomen appears normal, Palpation: abdomen is soft and non-tender, in all quadrants. 19:10 Back: pain, that is moderate, of the diffuse, ROM is painful, with all movement. 19:10 Neuro: Orientation: to person, place \\T\\ time. Mentation: is normal, Motor: moves all fours, strength is normal, Sensation: is normal, Gait: is steady, at a normal pace, without difficulty. Vital Signs: 18:50 BP 173 / 94; Pulse 71; Resp 17; Temp 99.1; Pulse Ox 99% on R/A; Weight 129.27 kg; jl7 Height 6 ft. 3 in. (190.50 cm); Pain 6/10; 20:01 BP 147 / 86 Supine; ll3 20:01 BP 150 / 85 Sitting; ll3 20:01 BP 156 / 92 Standing; ll3 22:01 BP 143 / 93; Pulse 59; Resp 16; Pulse Ox 97% on R/A; ll3 18:50 Body Mass Index 35.62 (129.27 kg, 190.50 cm) jl7 MDM: 18:54 Patient medically screened. [facility] 21:23 Data reviewed: vital signs, nurses notes, lab test result(s). 21:23 Counseling: I had a detailed discussion with the patient and/or guardian regarding: the cp historical points, exam findings, and any diagnostic results supporting the discharge/admit diagnosis, lab results, to return to the emergency department if symptoms worsen or persist or if there are any questions or concerns that arise at home. Response to treatment: the patient's symptoms have mildly improved after treatment, and as a result, I will discharge patient. 03/29 18:54 Order name: COVID-19 SARS RT PCR (Document "Date of Onset" if Symptomatic); Complete cp Time: 20:43 03/29 20:43 Interpretation: Reviewed. cp 03/29 18:54 Order name: Influenza Screen (a \\T\\ B); Complete Time: 20:43 cp 03/29 20:43 Interpretation: Reviewed. cp 03/29 18:54 Order name: Orthostatics; Complete Time: 20:01 cp Administered Medications: 19:45 Drug: Ibuprofen 800 mg Route: PO; ll3 22:04 Follow up: Response: No adverse reaction ll3 19:45 Drug: Tylenol 1000 mg Route: PO; ll3 22:04 Follow up: Response: No adverse reaction ll3 21:16 Drug: Ketorolac 60 mg Route: IM; Site: right gluteus; ll3 22:04 Follow up: Response: No adverse reaction ll3 21:16 Drug: Flexeril (cyclobenzaprine) 10 mg Route: PO; ll3 22:04 Follow up: Response: No adverse reaction ll3 Disposition Summary: 03/29/22 21:23 Discharge Ordered Location: Home cp Problem: new cp Symptoms: have improved cp Condition: Stable cp Diagnosis - Headache cp - Dorsalgia, unspecified cp - SARS-associated coronavirus as the cause of diseases classified elsewhere cp Followup: cp - With: Private Physician - When: 2 - 3 days - Reason: Worsening of condition Discharge Instructions: - Discharge Summary Sheet cp - Acute Back Pain, Adult cp - General Headache Without Cause cp - Aspirin and Your Heart cp - COVID-19 cp - Things to Know about the COVID-19 Pandemic - [facility] cp - 10 Things You Can Do to Manage Your COVID-19 Symptoms at Home - [facility] cp - COVID-19: Quarantine vs. Isolation - [facility] cp - Prevent the Spread of COVID-19 if You Are Sick - [facility] cp Forms: - Medication Reconciliation Form cp - Thank You Letter cp - Antibiotic Education cp - Prescription Opioid Use cp Prescriptions: - Paxlovid (EUA) 150 mg x 2- 100 mg Oral tablet - take 3 tablet by ORAL route 2 times per day per package directions; 30 tablet; cp Refills: 0, Product Selection Permitted - Ibuprofen 800 mg Oral Tablet - take 1 tablet by ORAL route every 8 hours As needed take with food; 30 tablet; cp Refills: 0, Product Selection Permitted - Cyclobenzaprine 10 mg Oral Tablet - take 1 tablet by ORAL route every 8 hours As needed; 20 tablet; Refills: 0, cp Product Selection Permitted Signatures: Dispatcher [employer] EDRaffi Esquivel MD MD cha Page, Corey, PA PA cp Leal, Jahala, RN RN jl7 John Denise RN RN ll3
[2022-03-29 22:29] VITALS: TEMP 99.1
[2022-03-29 22:36] VITALS: BP 143/93; O2SAT 97
== END 2022-03-29 22:04 | disposition home or self-care (01) ==
LOC: ER 18:12
DX: U07.1 COVID-19 (principal); M54.9 Dorsalgia, unspecified; Z88.0 Allergy status to penicillin
CPT/HCPCS: 87804 ×2; U0003; 96372; 99283